=== PATIENT | female | born 1995 | race Caucasian/White ===

== ENCOUNTER 2024-01-10 09:51 | Outpatient (CLI) | payer OTHER, SELFPAY ==
[2024-01-10 10:56] LABS: Cholesterol 178 mg/dL (0-200); HDL Direct 50 mg/dL; Triglycerides 68 mg/dL (<150)
[2024-01-10 11:07] LABS: LDL Cholesterol Direct 104 mg/dL
[2024-01-10 11:09] LABS: Hemoglobin A1C 4.9 % (<5.7)
[2024-01-12 11:24] LABS: Progesterone 0.8 ng/mL
[2024-01-12 11:33] LABS: DHEA-Sulfate 319 mcg/dL (14-349); FSH 6.4 mIU/mL; Prolactin 7.3 ng/mL
[2024-01-13 14:28] LABS: Testosterone Free 5.6 pg/mL (0.1-6.4); Testosterone Total 38 ng/dL (2-45)
[2024-01-20 06:48] LABS: Estradiol, Ultrasensitive 29 pg/mL
== END 2024-01-10 09:52 | disposition home or self-care (01) ==
LOC: ANHLAB 09:53
PROVIDERS: Visit Provider Obstetrics & Gynecology
DX: N92.6 Irregular menstruation, unspecified (principal); L68.0 Hirsutism; E66.9 Obesity, unspecified
CPT/HCPCS: 36415; 80061; 82627; 82670; 83001; 83036; 83498; 83525; 83527; 84144; 84146; 84402; 84403; 84443

== ENCOUNTER 2024-10-28 15:43 | Outpatient (CLI) | payer OTHER, SELFPAY ==
[2024-10-28 16:22] LABS: Hematocrit 42.4 % (37.0-47.0); Hemoglobin 13.9 g/dL (12.0-15.0); Mean Corpuscular HGB Conc 32.8 g/dl (32-36); Mean Corpuscular Volume 88.5 fl (80-100); Mean Platelet Volume 10.5 fl (7.4-10.4); Platelet Count Result 265 k/mm3 (150-375); Red Blood Count 4.79 M/mm3 (4.2-5.4); Red Cell Distribution Width 13.6 % (11.5-14.5); White Blood Count 9.7 K/mm3 (4.5-10.0)
[2024-10-28 16:42] LABS: Alanine Aminotransferase 24 U/L (6-35); Albumin Level 4.4 g/dL (3.5-5.1); Alkaline Phosphatase 91 U/L (38-126); Anion Gap 13 mmol/L (4-12); Aspartate Amino Transferase 28 U/L (14-36); Bilirubin,Total 0.4 mg/dL (0.2-1.3); Blood Urea Nitrogen 10 mg/dL (7-17); Calcium 9.7 mg/dL (8.4-10.2); Carbon Dioxide 24 mmol/L (22-30); Chloride 103 mmol/L (98-107); Estimated Glomerular Filt Rate > 60; Glucose 90 mg/dL (65-110); Sodium 140 mmol/L (137-145)
[2024-10-28 16:59] LABS: Beta HCG Quantitative < 2.39 mIU/ML
== END 2024-10-28 15:44 | disposition home or self-care (01) ==
LOC: ANHLAB 15:45
PROVIDERS: PCP Family Medicine; Visit Provider Obstetrics & Gynecology
DX: Z30.9 Encounter for contraceptive management, unspecified (principal); F41.9 Anxiety disorder, unspecified; E66.9 Obesity, unspecified; Z79.899 Other long term (current) drug therapy
CPT/HCPCS: 36415; 80053; 84443; 84702; 85027